=== PATIENT | female | born 1975 | race Caucasian/White ===

== ENCOUNTER 2022-09-16 07:22 | Outpatient (OUT) | payer BC, SELFPAY ==
--- NOTE | 2022-09-16 07:26 | MM_ITS ---
Patient: TERE GASTON Exam Date: 09/16/2022 : 1975 Gender:F Ordering : DR Antoni Morel D.O. Admission #: [id number] Family : Order #: [id number] CLICK HERE TO VIEW EXAM RADIOLOGY REPORT PROCEDURE: MM TOMOSYNTHESIS SCREENING BI COMPARISON: MG MAMM SCREEN 3D ALEXANDR CAD, 09/13/2020. MG MAMM SCREEN 3D ALEXANDR CAD, 09/14/2021. INDICATIONS: Screening mammogram Z12.31 Calculator Name NCI Breast Cancer Risk Assessment Tool 5 Year Breast Cancer Risk 1.40% Lifetime Breast Cancer Risk 13.60% Personal Breast Cancer No Personal Ovarian Cancer No Treatments None Family Cancers Grandmother-maternal with leukemia cancer at age ~78. LOCATION: [facility] [place] BREAST COMPOSITION: Almost entirely fatty. FINDINGS: DIAGNOSTIC CATEGORY 1--NEGATIVE. NO CHANGE FROM COMPARISON ASSESSMENT. Scattered benign-appearing nodules are present. Scattered benign-appearing calcifications are present. Scattered benign-appearing lymph nodes are present. RIGHT BREAST: No significant suspicious finding. LEFT BREAST: No significant suspicious finding. RECOMMENDATIONS: ROUTINE MAMMOGRAM AND CLINICAL EVALUATION IN 12 MONTHS. PLEASE NOTE: A NORMAL MAMMOGRAM DOES NOT EXCLUDE THE POSSIBILITY OF BREAST CANCER. A CLINICALLY SUSPICIOUS PALPABLE LUMP SHOULD BE BIOPSIED. Dictated by: Gutierrez Malik MD on 09/16/2022 at 11:08 Approved by: Gutierrez Malik MD on 09/16/2022 at 11:17
[2022-09-16 07:56] LABS: Basophils Absolute Auto 0.1 10^3/uL (0.0-0.1); Basophils Percent Auto 0.8 % (0.2-2.0); Eosinophils Absolute Auto 0.1 10^3/uL (0.0-0.7); Eosinophils Percent Auto 1.8 % (0.9-7.0); Hematocrit 38.6 % (36.0-48.0); Immature Granulocytes Abs Auto 0.03 10^3/uL (0.00-0.03); Immature Granulocytes Pct Auto 0.5 % (0.0-0.5); Lymphocytes Absolute Auto 2.2 10^3/uL (1.2-3.8); Lymphocytes Percent Auto 36.4 % (20.5-60.0); Mean Corpuscular HGB Conc 33.7 g/dL (29.9-35.2); Mean Corpuscular Hemoglobin 30.8 pg (26.7-34.0); Mean Corpuscular Volume 91.5 fL (81.0-99.0); Mean Platelet Volume 9.4 fL (9.5-13.5); Monocytes Absolute Auto 0.5 10^3/uL (0.3-0.8); Monocytes Percent Auto 7.9 % (1.7-12.0); Neutrophils Absolute Auto 3.2 10^3/uL (1.4-6.5); Neutrophils Percent Auto 52.6 % (43.0-75.0); Platelet Count 297 10^3/uL (150-450); Red Blood Count 4.22 10^6/uL (4.20-5.40); Red Cell Distribution Width 12.9 % (11.0-15.0); White Blood Count 6.1 10^3/uL (4.0-11.0)
[2022-09-16 09:44] LABS: Alanine Aminotransferase 26 U/L (14-59); Albumin Globulin Ratio 0.9; Albumin Level 3.4 g/dL (3.4-5.0); Alkaline Phosphatase 71 U/L (46-116); Anion Gap 12.4; Aspartate Amino Transferase 24 U/L (15-37); BUN Creatinine Ratio 25.4; Bilirubin Total 0.3 mg/dL (0.2-1.0); Calcium 8.9 mg/dL (8.5-10.1); Carbon Dioxide 26.6 mmol/L (21.0-32.0); Chloride 106 mmol/L (98-107); Cholesterol 191 mg/dL (<=200); Estimated GFR (African America >60 (>=60); Estimated GFR (Non-African Ame >60 (>=60); Globulin 3.6 g/dL; Glucose 91 mg/dL (74-106); HDL Cholesterol 64 mg/dL (40-60); Sodium 141 mmol/L (136-145); Thyroid Stimulating Hormone 2.268 uIU/mL (0.358-3.740); Triglycerides 77 mg/dL (<=150); VLDL CHOLESTEROL 15.4 mg/dL
[2022-09-16 11:36] LABS: Estimated Average Glucose 97 mg/dL
== END 2022-09-16 07:23 | disposition home or self-care (01) ==
LOC: MAMMO 07:23
PROVIDERS: PCP Internal Medicine; Visit Provider Internal Medicine
DX: Z00.00 Encounter for general adult medical examination without abnormal findings (principal); Z12.31 Encounter for screening mammogram for malignant neoplasm of breast; Z80.6 Family history of leukemia
CPT/HCPCS: 36415; 77063; 77067; 80053; 80061; 83036; 84443; 85025

== ENCOUNTER 2023-09-29 07:37 | Outpatient (OUT) | payer OTHER, SELFPAY ==
--- NOTE | 2023-09-29 07:38 | MM_ITS ---
Patient Name: TERE GASTON MR#: [id number] : 1975 Exam Date: 09/29/2023 Ordering Doctor: DR Antoni Morel D.O. RADIOLOGY REPORT PROCEDURE: MM TOMOSYNTHESIS SCREENING BI COMPARISON: MG MAMM SCREEN 3D ALEXANDR CAD, 09/14/2021. MM TOMOSYNTHESIS SCREENING BI, 09/16/2022. INDICATIONS: Screening Calculator Name NCI Breast Cancer Risk Assessment Tool 5 Year Breast Cancer Risk 1.40% Lifetime Breast Cancer Risk 13.40% Personal Breast Cancer No Personal Ovarian Cancer No Treatments None Family Cancers Grandmother-maternal with leukemia cancer at age ~78. LOCATION: [facility] BREAST COMPOSITION: The breasts are almost entirely fatty. FINDINGS: DIAGNOSTIC CATEGORY 1--NEGATIVE. NO CHANGE FROM COMPARISON ASSESSMENT. Scattered benign-appearing nodules are present. Scattered benign-appearing calcifications are present. Scattered benign-appearing lymph nodes are present. RIGHT BREAST: No significant suspicious finding. LEFT BREAST: No significant suspicious finding. RECOMMENDATIONS: ROUTINE MAMMOGRAM AND CLINICAL EVALUATION IN 12 MONTHS. PLEASE NOTE: A NORMAL MAMMOGRAM DOES NOT EXCLUDE THE POSSIBILITY OF BREAST CANCER. A CLINICALLY SUSPICIOUS PALPABLE LUMP SHOULD BE BIOPSIED. Dictated by: Gutierrez Malik MD on 09/29/2023 at 09:09 Approved by: Gutierrez Malik MD on 09/29/2023 at 09:10
== END 2023-09-29 07:38 | disposition home or self-care (01) ==
LOC: MAMMO 07:37
PROVIDERS: PCP Internal Medicine; Visit Provider Internal Medicine
DX: Z12.31 Encounter for screening mammogram for malignant neoplasm of breast (principal); Z80.6 Family history of leukemia
CPT/HCPCS: 77063; 77067

== ENCOUNTER 2024-10-01 07:18 | Outpatient (OUT) | payer OTHER, SELFPAY ==
--- OUTSIDE RECORDS SUMMARY | 2024-09-29 05:53 | XMS_ITS | Continuity of Care Document ---
Author Organization [facility] Address [address] [place] [address] Phone Care Team Providers Care Beer Brewer Name Role Phone Antoni Morel DO Primary Care Provider Antoni Morel DO Attending Provider Care Teams Patient Care Team Team Status: Active Member Role Status Dates Antoni Morel DO Primary Care Provider Active Visit Care Team Team Status: Inactive Member Role Status Dates Antoni Morel DO Primary Care Provider Active Start: September 03, 2024 End: September 03, 2024 Antoni Morel DO Attending Provider Active Sta rt: September 03, 2024 End: September 03, 2024 Patient Care Team Team Status: Inactive Member Role Status Dates Antoni Morel DO Primary Care Provider Active Start: September 29, 2024 End: September 29, 2024 Antoni Morel DO Attending Provider Active Sta rt: September 29, 2024 End: September 29, 2024 Chief Complaint and Reason for Visit 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 September 03, 2024 9:55 am UA, pressure, urgency, fatigue September 29, 2024 9:28am Reason for Visit Admit Date Hypothyroid September 03, 2024 9:55 am Pre-employment examination September 03 9:55am Allergies, Adverse Reactions, Alerts Allergen Type Severity Reaction Last Updated Verified Status No Known Allergies Allergy Unknown Decemb er 2023 10:37am Yes Active Social History Smoking Status Unknown if ever smoked Observation Status Observation Response Date of Response Legal Sex Female (finding) Sex Assigned At Female 1975 Family History Relationship Condition Age at Onset Recorded Date/T doe father Heart disease Unknown Problems Active Problems Medical Problem Onset Date Status Pre-employment examination Unknown Activ e Plantar fasciitis of left foot Unknown A ctive Hypothyroid Unknown Active Mucocele of lower lip Unknown Active GERD (gastroesophageal reflux disease) Unknown Active Obesity Unknown Active Medications Medication Status Dose Units Route Directions Qty Days St art Date Stop Date End Date Instructions Adherence Levothyroxi ne 88 mcg tablet Discont inued 0 .ROUTE .COMPLEX September 23, 2023 6:11pm August 20, 2024 9:08a m TAKE 1 TABLET DAILY ON AN EMPTY STOMACH Levothyroxi ne 88 mcg tablet Active 88 MCG PO Daily August 20, 2024 9:07am Take medication alone on an empty stomach Unknown Meloxicam 7.5 mg tablet Active 0 .ROUTE .COMPLEX August 21, 2024 7:02am TAKE 1 TABLET DAILY Unknown Triamcinolo ne Acetonide 0.1 % cream Active 1 APPLIC TOPICA L Twice daily 15 15 Decemb er 2023 1:00am Unknown Doxycycline Hyclate 100 mg capsule Active 100 MG PO Twice daily 20 10 Decemb er 2023 1:00am Unknown Levothyroxi ne 88 mcg tablet Discont inued 88 MCG PO Daily September 23, 2023 12:00a m September 23, 2023 6:11p m Meloxicam 7.5 mg tablet Discont inued 1 TAB PO Daily November 10, 2023 12:00a m August 21, 2024 7:02a m FreeTextSig: TAKE 1 TABLET BY MOUTH EVERY DAY Orally Once a day; Note: Source Status: Refill; Refills: 3; Provider: Adriel Whitmore Estradiol 1 mg tablet Active 1 MG PO Daily November 10, 2023 12:00a m Unknown Estradiol 0.01 % (0.1 mg/gram) cream Active 1 APPLIC ATOR VAGINA L Twice a Week November 10, 2023 12:00a m Unknown Vital Signs Vital Reading Result Reference Range Collection Date/Time Height 70 [in_i] September 03, 2024 10:07am Weight 105.34 kg September 03, 2024 10:07am Heart Rate 62 /min 60-100 September 03, 2024 10:07am Respiratory rate 12 /min 12-24 September 03, 2024 10:07am BP Systolic 112 mm[Hg] 100-140 September 03, 2024 10:07am BP Diastolic 73 mm[Hg] 60-100 September 03, 2024 10:07am BMI (Body Mass Index) 33.3 kg/m2 August 222024 10:07am Advance Directives Advance Directive Response Recorded Date/ Time Advance Directives No August 12 9:43am Insurance Providers Guarantor Flower Colvin Address [address] [place] [phone] Contact Info. Home Phone: Payer Policy Id Subscriber's Name Subscriber Id Effectiv e Date [place] [facility] [id number] Flower Colvin [id number] [facility] [id number] Flower Colvin [id number] Encounters Encounter Location(s) Arrival/Admit Date Discharge/Depart Date Provider(s) Departed Physician/Prov ider Office Visit -[facility] September 03, 2024 9:55am September 03, 2024 10:18am Antoni Morel DO Departed Physician/Prov ider Office Visit -[facility] September 29, 2024 9:28am September 29, 2024 9:52am Antoni Morel DO Recent Diagnosis Onset Date Admit Date Hypothyroid Unknown September 03, 2024 9:55am Pre-employment examination Unknown September 03, 2024 9:55am Assessments Diagnosis Onset Date Resolution Status Admit Date Hypothyroid acute September 03 9:55am Pre-employment examination acute September 03, 2024 9:55am Plan of Treatment Author Antoni Morel [facility] Authored September 01, 2024 7:29 am No physical or historical fi nding to prevent her from employment. Clinically euthyroid, monitor yearly TSH Future Tests Future scheduled test information is unavailable Pending Tests Pending diagnostic test information is unavailable Future Visits Future appointment information is unavailable Referrals to Other Providers Referral information is unavailable Future Procedures Future procedure information is unavailable Future Medications Future medication information is unavailable Patient Instructions Patient instructions are unavailable
--- OUTSIDE RECORDS SUMMARY | 2024-10-01 07:19 | XMS_ITS | Clinical Summary ---
Author Organization [facility] Address [address] [place] [address] Care Team Providers Care Stress Analyst Name Role Phone Antoni Morel Primary Care Provider [phone] Allergies No known active allergies Medications meloxicam (Mobic) 7.5 MG tablet 1 (one) time each day at the same time Active levothyroxine (Synthroid, Levoxyl) 88 MCG tablet Active estradiol (Estrace) 0.1 MG/GM vaginal creamIndication s:Asymptomatic menopausal state Insert 0.01 g into the vagina 2 (two) times a week 42.5 g 3 5 Active estradiol (Estrace) 1 MG tabletIndicatio ns:Asymptomatic menopausal state Take 1 tablet (1 mg) by mouth Daily 90 tablet 3 5 Active ciclopirox (Penlac) 8 % solutionIndicat ions:Onychomyco sis Apply topically at bedtime 6 mL 3 5 Active Active Problems Problem Noted Date Diagnosed Date Autoimmune hypothyroidism 10/28/2022 Gastroesophageal reflux disease 10/28/2022 Osteoarthritis of left hip 10/28/2022 History of total hysterectom y with bilateral salpingo-oophorectomy (BSO) 10/28/2022 Presence of right artificial hip joint Primary localized osteoarthritis of pelvic regio n and thigh 10/28/2022 Status post total hip replacement, left 10/29/19 23 Encounters Date Type Department Care Team Description 07/19/2024 9:30 AM EDT Office Visit [facility] [address] [place] [id number] Victorino Lang DPM Peroneal tendinitis, left (Primary Dx); Plantar fasciitis; Contracture of left ankle; Contracture of right ankle 07/19/2024 Bamboo flowsheet [facility] [address] [place] [id number] Victorino Lang DPM 07/09/2024 8:45 AM EDT Office Visit [facility] [address] [place] [address] Gutierrez Murphy DO Carpal tunnel syndrome on left (Primary Dx); Ganglion of left wrist 07/09/2024 8:40 AM EDT Ancillary Procedure [facility] [address] [place] [address] 07/09/2024 Bamboo flowsheet [facility] [address] [place] [address] Guiterrez Murphy DO 07/09/2024 Travel from Last 3 Months Immunizations Immunization Administration Dates Next Due Influenza, injectable, quadrivalent, preservativ e free 01/26/2021,12/29/2019 Family History Medical History Relation Name Comments Heart disease Father Hypertension Father Hypertension Mother Relation Name Status Comments Father Alive Mother Alive Social History Tobacco Use Types Packs/Day Years Used Date Smoking Tobacco: Never Smokeless Tobacco: Never Tobacco Cessation:Counseling Given: Yes Alcohol Use Standard Drinks/Week Comments Yes 0 (1 standard drink = 0.6 oz pur e alcohol) monthly or less Comments No Sex and Gender Information Value Date Recorded Sex Assigned at Not on file Legal Sex Female 6:39 PM EDT Gender Identity Not on file Sexual Orientation Not on file Last Filed Vital Signs Vital Sign Reading Time Taken Comments Blood Pressure 122/74 06/07/2024 9:30 AM EDT Pulse 78 06/07/2024 9:30 AM EDT Temperature - - Respiratory Rate 16 07/19/2024 9:38 AM EDT Oxygen Saturation - - Inhaled Oxygen Concentration - - Weight 108 kg (237 lb) 07/19/2024 9:38 AM EDT Height 177.8 cm (5' 10 ) 07/19/2024 9:38 AM EDT Body Mass Index 34.01 07/19/2024 9:38 AM EDT Plan of Treatment Upcoming Encounters Date Type Department Care Team (Late st Contact Info) Description 10/06/2024 8:00 AM EDT Office Visit [facility] [address] [place] [address] Gutierrez Murphy, DO [address] [facility], [place] [id number] 01/26/2025 9:45 AM EST Office Visit [facility] [address] [place] [address] Gutierrez Murphy, DO [address] [place] [address] 04/14/2025 11:00 AM EST Office Visit [facility] [address] [place] [address] Rajni Qureshi, CNM [address] [place], [place] [id number] Insurance [employer] Care Teams Stress Analyst Relationship Specialty Start Date End Date Antoni Morel DO [address] [place] [address] PCP - General Internal Medicine 07/09/24
--- OUTSIDE RECORDS SUMMARY | 2024-10-01 07:19 | XMS_ITS | Clinical Summary ---
Author Organization [facility] Address [address] [place] [address] Care Team Providers Care Beamster Name Role Phone Imani Pascual MD Primary Care Provider [phone] Social History Tobacco Use Types Packs/Day Years Used Date Smoking Tobacco: Never Assessed Comments Unknown Sex and Gender Information Value Date Recorded Sex Assigned at Not on file Legal Sex Female 4:00 PM EDT Gender Identity Not on file Sexual Orientation Not on file Plan of Treatment Not on file Care Teams Beamster Relationship Specialty Start Date End Date Imani Pascual MD PCP - General 10/26/14
--- OUTSIDE RECORDS SUMMARY | 2024-10-01 07:19 | XMS_ITS | Clinical Summary ---
Author Organization [facility] Address [id number] [address] [place] [address] Care Team Providers Care Certified Welder Name Role Phone Antoni Morel DO Primary Care Provider [phone] Allergies No known active allergies Medications estradiol (ESTRACE) 1 mg tablet Take 1 mg by mouth daily. 3 11/10/2018 Active levothyroxine (SYNTHROID, LEVOTHROID) 88 MCG tablet TAKE 1 TABLET BY MOUTH ONCE A DAY ON AN EMPTY STOMACH 3 12/12/2018 Active meloxicam (MOBIC) 7.5 mg tablet Take 7.5 mg by mouth daily. 3 10/26/2018 Active sodium,potassiu m,mag sulfates (SUPREP BOWEL PREP KIT) 17.5-3.13-1.6 gram recon soln 177 ml,actual weight, 2 times daily, Oral 1 kit 01/20/2019 Active Active Problems No known active problems Family History Medical History Relation Name Comments Heart disease Father Leukemia Maternal Grandmother Relation Name Status Comments Father Alive Maternal Grandmother Mother Alive Social History Tobacco Use Types Packs/Day Years Used Date Smoking Tobacco: Never Smokeless Tobacco: Never Alcohol Use Standard Drinks/Week Comments Not Currently 0 (1 standard drink = 0.6 oz pur e alcohol) Childcare Answer Date Recorded Childcare Unknown 01/18/2019 Employment Answer Date Recorded Employment Unknown 01/18/2019 Purpose - Life Answer Date Recorded Purpose and direction in life Unknown Comments Unknown Sex and Gender Information Value Date Recorded Sex Assigned at Not on file Legal Sex Female 9:54 AM EDT Gender Identity Not on file Sexual Orientation Not on file Last Filed Vital Signs Vital Sign Reading Time Taken Comments Blood Pressure 118/76 01/20/2019 11:00 AM EDT Pulse - - Temperature - - Respiratory Rate - - Oxygen Saturation - - Inhaled Oxygen Concentration - - Weight 97.5 kg (215 lb) 01/20/2019 11:00 AM EDT Height 177.8 cm (5' 10 ) 01/20/2019 11:00 AM EDT Body Mass Index 30.85 01/20/2019 11:00 AM EDT Plan of Treatment Health Maintenance Due Date Last Done Comments Depression Screening 1986 Tobacco Screening 1986 Adult BMI Screening 1992 DTaP,Tdap and Td Vaccines (1 - Tdap) 1993 Pap Smear 09/07/1995 Zoster (Shingles) Vaccine (1 of 2) 2024 Influenza Vaccine 11/22/2024 Colonoscopy 02/24/2029 02/24/2019 Medical Devices Not on file Procedures Procedure Name Priority Date/Time Associated Diagnosis Comments HM COLONOSCOPY Routine 02/24/2019 3:13 PM EST from Last 3 Months or Most Recently Relevant to Health Maintenance Insurance [employer] Care Teams Certified Welder Relationship Specialty Start Date End Date Antoni Morel DO [address] [place] [id number] PCP - General Internal Medicine 01/20/19
--- NOTE | 2024-10-01 07:45 | MM_ITS ---
Patient Name: TERE GASTON MR#: [id number] : 1975 Exam Date: 10/01/2024 Ordering Doctor: DR RON AGUILERA D.O. RADIOLOGY REPORT PROCEDURE: MM TOMOSYNTHESIS SCREENING BI COMPARISON: MM TOMOSYNTHESIS SCREENING BI, 09/29/2023. MM TOMOSYNTHESIS SCREENING BI, 09/16/2022. MG MAMM SCREEN 3D ALEXANDR CAD, 09/14/2021. MG MAMM ALEXANDR SCRN W CAD DIG, 09/21/2014. INDICATIONS: Screening Calculator Name NCI Breast Cancer Risk Assessment Tool 5 Year Breast Cancer Risk 1.50% Lifetime Breast Cancer Risk 13.30% Personal Breast Cancer No Personal Ovarian Cancer No Treatments None Family Cancers Grandmother-maternal with leukemia cancer at age ~78. LOCATION: [facility] BREAST COMPOSITION: The breasts are almost entirely fatty. FINDINGS: RIGHT BREAST: No significant suspicious finding. Similar focal asymmetries are present. LEFT BREAST: No significant suspicious finding. Similar focal asymmetries are present. DIAGNOSTIC CATEGORY 2--BENIGN FINDING: RECOMMENDATIONS: ROUTINE MAMMOGRAM AND CLINICAL EVALUATION IN 12 MONTHS. PLEASE NOTE: A NORMAL MAMMOGRAM DOES NOT EXCLUDE THE POSSIBILITY OF BREAST CANCER. A CLINICALLY SUSPICIOUS PALPABLE LUMP SHOULD BE BIOPSIED. Dictated by: Edward Nuñez MD on 10/01/2024 at 11:21 Approved by: Edward Nuñez MD on 10/01/2024 at 11:43
== END 2024-10-01 07:19 | disposition home or self-care (01) ==
PROVIDERS: PCP Internal Medicine; Visit Provider Internal Medicine
DX: Z12.31 Encounter for screening mammogram for malignant neoplasm of breast (principal); Z80.6 Family history of leukemia
CPT/HCPCS: 77063; 77067

== ENCOUNTER 2024-12-30 08:34 | Outpatient (OUT) | payer OTHER, SELFPAY ==
[2024-12-30 09:11] LABS: Alanine Aminotransferase 33 U/L (14-59); Aspartate Amino Transferase 23 U/L (15-37)
== END 2024-12-30 08:35 | disposition home or self-care (01) ==
PROVIDERS: PCP Internal Medicine; Visit Provider Internal Medicine
DX: Z79.899 Other long term (current) drug therapy (principal)
CPT/HCPCS: 36415; 84450; 84460